=== PATIENT | male | born 1965 | race Caucasian/White ===

== ENCOUNTER 2018-09-10 18:33 | Inpatient (IN) | payer OTHER ==
[~2018-09-10] VITALS: Ht 175.3 cm; Wt 89.4 kg
[~2018-09-10 18:33] MED LIST: IBUPROFEN 800800 MG PO; NOHOMEMEDICATIONS; NORCO 5-325 TA1 EACH PO
[2018-09-10 19:01] VITALS: BP 139/95
[2018-09-10 20:13] LABS: ABSOLUTE NEUTROPHILS 4.6 thou/uL (1.4-8.2); BASOPHILS 1.5 % (0.0-2.0); EOSINOPHILS 1.3 % (0.0-3.0); HEMATOCRIT 36.3 % (42.0-52.0); HEMOGLOBIN 12.1 gm/dL (14.0-18.0); LYMPHOCYTES 27.4 % (24.0-44.0); MCHC 33.2 g/dL (28.0-37.0); MCV 90.1 fL (80.0-100.0); MONOCYTES 7.9 % (1.0-8.0); PLATELET COUNT 213 thou/uL (150-400); POLYS 61.9 % (36.0-66.0); RBC 4.03 mil/uL (4.50-6.00); RDW 13.1 % (10.5-14.5); WBC 7.5 thou/uL (4.0-11.0)
[2018-09-10 20:21] LABS: ANION GAP 13 mmol/L (7-16); BUN 16 mg/dL (7-18); CALCIUM 8.6 mg/dL (8.5-10.1); CHLORIDE 106 mmol/L (98-107); CO2 22 mmol/L (21-32); CREATININE 1.1 mg/dL (0.7-1.3); GLUCOSE 123 mg/dL (74-106); POTASSIUM 4.1 mmol/L (3.5-5.1); SODIUM 141 mmol/L (136-145)
[2018-09-10 20:30] LABS: APTT 27.9 Seconds (24.5-32.8); D-DIMER 1.22 ug/mLFEU (0.19-0.50); INR 1.2; PROTIME 12.7 Seconds (9.3-11.4)
[2018-09-10 20:31] LABS: ALBUMIN 3.4 g/dL (3.4-5.0); MAGNESIUM 2.1 mg/dL (1.8-2.4); SGOT 35 U/L (15-37); SGPT 25 U/L (30-65); TOTAL BILIRUBIN 0.8 mg/dL (<0.1-1.0); TOTAL PROTEIN 7.1 g/dL (6.4-8.2); TROPONIN-I <0.06 ng/mL (<0.06)
[2018-09-10 22:47] LABS: URINE BILIRUBIN NEGATIVE (Negative); URINE BLOOD NEGATIVE (Negative); URINE CLARITY CLEAR; URINE COLOR YELLOW; URINE GLUCOSE-RANDOM* NEGATIVE (Negative); URINE KETONES NEGATIVE (Negative); URINE LEUKOCYTES-REFLEX NEGATIVE (Negative); URINE NITRITE-REFLEX NEGATIVE (Negative); URINE PROTEIN (DIPSTICK) 1+ (Negative); URINE SPECIFIC GRAVITY 1.025 (1.005-1.035); URINE UROBILINOGEN 0.2 E.U./dl (0.2-1.0)
[2018-09-10 23:15] LABS: BACTERIA-REFLEX None Seen /HPF (None Seen); CASTS None Seen /LPF (None Seen); CRYSTALS None Seen /LPF (None Seen); MUCUS 0-3 Light strn/LPF (None Seen); SQUAMOUS 0-3 Few /LPF (0-3); URINE RBC 0-2 Rare /HPF (0-2); URINE WBC-REFLEX 0-5 Rare /HPF (0-5)
[2018-09-10 23:48] VITALS: BP 120/83
[2018-09-10 23:55] VITALS: BP 121/65
--- NOTE | 2018-09-11 02:48 | NUR ---
PT ARRIVED UNIT AT ABOUT 0045. PT A/OX4, VITAL SIGNS STABLE, ASSESSMENT CHARTED. PT COMPLAINED OF SOME RESIDUAL CHEST AND BACK PAIN AFTER HE COUGHS. BUT RESOLVES IMMEDIATELY. OCCASIONAL SOB, O2 AT BED SIDE IF/WHEN HE NEEDS IT. SITTING UP IN BED HELPS. HEAD OF BED ELEVATED. ADMISSION COMPLETED. PT RESTING IN BED. PT ENCOURGED TO CALL. EDUCATION PROVIDED ABOUT FREQUENT CHECKS ESPECIALLY DURING INTEFERENCE. WILL CONTINUE TO MONITOR.
[2018-09-11 05:59] LABS: CHOLESTEROL 138 mg/dL (<200); HDL CHOLESTEROL 28 mg/dL (>40); LDL CHOLESTEROL 98 mg/dL (<100); SERUM ASSESSMENT Clear; TC:HDL 4.9 Ratio (Not establshd); TRIGLYCERIDE 64 mg/dL (<150); TROPONIN-I <0.06 ng/mL (<0.06); VLDL 13 mg/dL (<40)
--- NOTE | 2018-09-11 07:57 | EKG ---
[address] [place] [address] ELECTROCARDIOGRAM REPORT Name: SHIRLEY BARRETO Room #: 209-P ADM IN M.R.#: [id number] ������������������ Admission: 09/10/18 ������������������ Attend Phys: Mati Krause MD Discharge: ������������������ Date of : 63 Report #: [id number] ����������������������������������������������������������������� [id number] THIS REPORT FOR: //name// [facility] ED Test Date: 2018-09-10 Test Time: 18:39:56 Pat Name: SHIRLEY BARRETO Department: Room: 209 Gender: M Faculty Support Coordinator: BRAD : 1965 Requested By: Order Number: [id number] MD: Fahad Salomon Measurements Intervals [place] Rate: 117 P: 65 NE: 153 QRS: 68 QRSD: 103 T: 17 QT: 352 QTc: 491 Interpretive Statements Sinus tachycardia Left atrial enlargement Borderline prolonged QT interval No previous ECG available for comparison Electronically Signed On 09-11-2018 7:56:58 CDT by Fahad Salomon [email or web address] ��������������������������������������������� <ELECTRONICALLY SIGNED> ���������������������������������������� By: Fahad Salomon MD, [facility] ��������������������������������������������� 09/11/18 0756 1839 183 Fahad Salomon MD, FACC /EPI
--- NOTE | 2018-09-11 08:00 | EKG ---
[address] [place] [address] ELECTROCARDIOGRAM REPORT Name: SHIRLEY BARRETO Room #: 209-P ADM IN M.R.#: [id number] ������������������ Admission: 09/10/18 ������������������ Attend Phys: Mati Krause MD Discharge: ������������������ Date of : 63 Report #: [id number] ����������������������������������������������������������������� [id number] THIS REPORT FOR: //name// [facility] Test Date: 2018-09-11 Test Time: 06:56:00 Pat Name: SHIRLEY BARRETO Department: Room: 209 P Gender: M [employer]: CARMEL : 1965 Requested By: Kym Mccoy Order Number: [id number] MD: Fahad Salomon Measurements Intervals [place] Rate: 95 P: 50 IA: 169 QRS: 55 QRSD: 109 T: 19 QT: 395 QTc: 497 Interpretive Statements Sinus tachycardia Multiple ventricular premature complexes Poor R wave progression Borderline prolonged QT interval No previous ECG available for comparison Electronically Signed On 09-11-2018 8:00:06 CDT by Fahad Salomon [email or web address] ��������������������������������������������� <ELECTRONICALLY SIGNED> ���������������������������������������� By: Fahad Salomon MD, [facility] ��������������������������������������������� 09/11/18 0800 0656 5 Fahad Salomon MD, FACC /EPI
--- NOTE | 2018-09-11 08:07 | 2DMMODE ---
[facility] [address] [place] [address] 2 D/M-MODE ECHOCARDIOGRAM Name: SHIRLEY BARRETO Room #: 209-P ADM IN M.R.#: [id number] ������������� Admission: 09/10/18 ������������� Attend Phys: Mati Krause MD Discharge: ��� ������������� ��� Date of : 63 Date of Service: 09/11/18 0806 �� Report #: [id number] �������� ��������������������������������������������[id number] THIS REPORT FOR: //name// APPROVED REPORT Study performed: 09/11/2018 06:54:04 EXAM: Comprehensive 2D, Doppler, and color-flow Echocardiogram Patient Location: Bedside Room #: 209 Status: routine BSA: 1.98 HR: 100 bpm BP: 121/65 mmHg Rhythm: NSR/TACHY/PVCs Other Information Study Quality: Excellent Indications Diaphoresis, leg edema, short of breath, chest pain. Hx: Tob and ETOH abuse. 2D Dimensions RVDd: 49.75 mm IVSd: 10.19 (7-11mm) LVOT Diam: 22.39 (18-24mm) LVDd: 61.83 mm PWd: 9.70 (7-11mm) Ascending Ao: 37.62 (22-36mm) LVDs: 55.70 (25-40mm) Aortic Root: 36.95 mm Volumes Left Atrial Volume (Systole) Single Plane 4CH: 103.15 mL Single Plane 2CH: 134.77 mL LA ESV Index: 63.00 mL/m2 Aortic Valve AoV Peak Toni.: 0.93 m/s AO Peak Gr.: 3.46 mmHg LVOT Max P.72 mmHg LVOT Max V: 0.66 m/s SUYAPA Vmax: 2.77 cm2 Mitral Valve MV Decel. Time: 143.81 ms MV E Max Toni.: 1.26 m/s [facility] [place] [address] [place] [address] 2 D/M-MODE ECHOCARDIOGRAM Name: SHIRLEY BARRETO [place] Room #: 209- ADM IN M.R.#: [id number] ������������� Admission: 09/10/18 ������������� Attend Phys: Mati Krause MD Discharge: ��� ������������� ��� Date of : 63 Date of Service: 09/11/18 0806 �� Report #: [id number] �������� ��������������������������������������������[id number] Pulmonary Valve PV [place] Toni.: 0.62 m/s PV [place] Gr.: 1.55 mmHg Tricuspid Valve TR [place] Toni.: 3.55 m/s RAP Estimate: 15.00 mmHg TR [place] Gr.: 50.00 mmHg PA Pressure: 65.00 mmHg Left Ventricle Left ventricle is moderately dilated. There is global hypokinesis of the left ventricle. There is normal left ventricular wall thickness. Left ventricular systolic function is severely decreased. LVEF is 20-25%. This study is not technically sufficient to allow evaluation of the LV diastolic function. Right Ventricle Right ventricle is moderately dilated. Right ventricular systolic function is mild to moderately reduced. Atria Left atrium is severely dilated. Right atrium is severely dilated. Aortic Valve The aortic valve is normal in structure. No aortic regurgitation is present. There is no aortic valvular stenosis. Mitral Valve The mitral valve is normal in structure. Severe mitral regurgitation. No evidence of mitral valve stenosis. Tricuspid Valve The tricuspid valve is normal in structure. Estimated PAP is 60-65mmHg. Severe tricuspid regurgitation. Pulmonic Valve The pulmonary valve is normal in structure. Trace pulmonic regurgitation. Great Vessels The aortic root is normal in size. The ascending aorta is borderline dilated. IVC is dilated and collapses <50% with inspiration. Pericardium [facility] [address] [address] 2 D/M-MODE ECHOCARDIOGRAM Name: SHIRLEY BARRETO Room #: 209-P ADM IN M.R.#: [id number] ������������� Admission: 09/10/18 ������������� Attend Phys: Mati Krause MD Discharge: ��� ������������� ��� Date of : 63 Date of Service: 09/11/18 0806 �� Report #: [id number] �������� ��������������������������������������������[id number] Small pericardial effusion. <Conclusion> Left ventricular systolic function is severely decreased. LVEF is 20-25%. Both atria are severely dilated. The aortic valve is normal in structure. No aortic regurgitation or stenosis The mitral valve is normal in structure. Severe mitral regurgitation. The tricuspid valve is normal in structure. Estimated pulmonary artery pressure of 60-65mmHg. Small pericardial effusion. ��������������������������������������������� <ELECTRONICALLY SIGNED> ���������������������������������������� By: Fahad Salomon MD, [facility] ��������������������������������������������� 09/11/18805 5 5 Fahad Salomon MD, [facility] /INF
[2018-09-11 08:26] VITALS: BP 124/88
--- NOTE | 2018-09-11 09:51 | NUR ---
AAOX4. CARDIAC TESTS ONGOING AT THIS TIME. DR. LEO TO SEE. ST PER TELEMETRY. D-DIMER 1.22 INDICATES LIKELIHOOD OF A CLOT BUT NONE FOUND YET. FREQUENT CHECKS; WILL CONTINUE TO MONITOR.
--- NOTE | 2018-09-11 13:57 | NUR ---
BACK FROM CARDIAC CATH, REPORT FROM KEILA SANCHEZ. HE REPORTS PATIENT BECAME DIAPHORETIC DURING THE PROCEDURE D/T ETOH WITHDRAWL. DR. EDVIN PRO. PRIYA MULLINS, HERE AND WILL ORDER CWA PROTOCOL. WILL CONTINUE TO MONITOR POST CATH.
--- NOTE | 2018-09-11 14:39 | NUR ---
Case opened to follow for dc planning. Freelance Operator visited with the pt at bedside. He is a&ox4 and has several siblings at bedside. 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 He is indep and lives with his brother. His ex is his emergency contact. He denies any dc planning needs at this time. He reports there [place] a clinic in [place] that he can f/u at. Options for discounts on medications and safte[facility] net clinics in [place] discussed. Pt going to laboratory sample carrier and with family at bedside; ethol abuse and tx resources not discussed. Pt will need a alvaro application from [employer]. Will follow.
[2018-09-11 14:43] VITALS: BP 124/88
--- NOTE | 2018-09-11 14:43 | CATHLAB ---
[facility] [address] [place] [address] INVASIVE PROCEDURE REPORT Name: SHIRLEY BARRETO Room #: 209-P ADM IN M.R.#: [id number] ������������� Admission: 09/10/18 ������������� Attend Phys: Mati Krause MD Discharge: ��� ������������� ��� Date of : 63 Date of Service: 09/11/18 1443 �� Report #: [id number] �������� ��������������������������������������������[id number] THIS REPORT FOR: //name// APPROVED REPORT Study performed: 09/11/2018 12:43:11 Patient Details Patient Status: In-Patient Room #: The patient is a 53 year-old male Event Personnel Troy Do Director Design, , Kathy Agosto, Mirtha [place] RTR, FACUNDO Scrub, Jose Antonio Peres RN Vice President Payment Procedures Performed Art Access - R femoral artery* Naseem Access - R femoral vein 93632 Initial Mod Sed Same Phys/QHP Gr5y 340300 54899 Mod Sed Same Phys/QHP Ea 950288 Right and Left Heart Cath w/or w/o Coronarie [id number] [facility] Aortogram Abdominal Peripheral Angio 589772 Hemostasis w/ Mynx Indication Chest pain Procedure Narrative The patient was brought urgently to the Cardiac Catheterization Laboratory and was prepped and draped in a sterile manner. The Right Groin^ was infiltrated with 1% Lidocaine subcutaneous anesthesia. A Right Heart Catheterization was performed with a 7 Fr. [place]-Jorge Luis catheter and pressure were recorded. Cardiac outputs were obtained by the Thermal Dilution method. A PINNACLE 6FR Sheath #[id number] sheath was inserted into the RFA^. Coronary angiography was performed using coronary diagnostic catheters. The right coronary system was accessed and visualized with a JR 4 catheter. The left coronary system was accessed and visualized with a JL 4 catheter. The left ventricle was accessed and visualized with a Pigtail catheter. Left ventriculogram was performed in [place]OR[place] projection. An aortogram of the abdominal aorta was performed. Pre-demployment femoral angiogram was performed . Closure device was deployed with a 6 Fr Mynx. Hemostasis was obtained with manual pressure following sheath removal without any complications. The patient tolerated the procedure well and there were no complications associated with the procedure. There was no hematoma. [facility] [place] [address] INVASIVE PROCEDURE REPORT Name: SHIRLEY BARRETO Room #: 209-P [facility] IN ..#: [id number] ������������� Admission: 09/10/18 ������������� Attend Phys: Mati Krause MD Discharge: ��� ������������� ��� Date of : 63 Date of Service: 09/11/18 1443 �� Report #: [id number] �������� ��������������������������������������������[id number] Intraoperative Conscious Sedation Sedation start time: 12:57 Case end Time: 13:30 Fentanyl 75 mcg Versed 1.5 mg Fluoro Time: 4.20 minutes Dose: DAP 8878 cGycm2 1035 mGy Contrast Type and Amount: Omnipaque 105 ml Hemodynamics The right atrial mean pressure is 22 mmHg. The right ventricular pressure is 40/12 mmHg. The pulmonary artery pressure is 49/31 mmHg with a mean of 41 mmHg. The mean pulmonary capillary wedge pressure is 35 mmHg. The aortic pressure is 102/81 mmHg with a mean of 90 mmHg. The left ventricular pressure is 101/10 mmHg with a mean of mmHg. The left ventricular end diastolic pressure is 20 mmHg. The cardiac output using thermo method is 2.45 L/min. The cardiac index using thermo method is 1.24 L/min/m2. Conclusion #1 significant left ventricular dilatation and severe global hypokinesis EF 15-20% range with what appears to be moderate mitral regurgitation #2 abdominal aortogram revealingno kidney aneurysm there appears to be generalized slow flow no significant stenosis #3 there is a moderate distal left main stenosis approaching 50% giving rise to LAD and circumflex #4 LAD moderately diseased proximally 5060% diffuse irregularities with calcification also involving the diagonal takeoffs. Moderate diagonal system the mid-distal LAD well preserved. This is a type I LAD and stops short of the apex #5 circumflex OM is nondominant moderate disease 50-60% ostial disease with one single OM branch #6 large dominant right coronary artery supplying most of the inferior lateral and anterior apical wall. No occlusive disease #7 successful right heart catheterization with significant decrease in cardiac output cardiac index. See above hemodynamics. IV Lasix giving during this procedure. Ulna A wedge pressure proximal a 25 PA pressure 50/25. Cardiac index 1.7 Recommendations and plan: Patient will transfer back to telemetry unit. IV Lasix and continue aggressive diuresis. Initiation of leo R but beta blockers to ensue. Idiopathic global cardiopathy with moderate left main LAD disease. Do not perceive that the LAD and left main is the culprit for this [facility] [address] [place] [address] INVASIVE PROCEDURE REPORT Name: CATES,SHIRLEY DESTINY Room #: 209-P ADM IN M.R.#: [id number] ������������� Admission: 09/10/18 ������������� Attend Phys: Mati Krause MD Discharge: ��� ������������� ��� Date of : 63 Date of Service: 09/11/18 1443 �� Report #: [id number] �������� ��������������������������������������������[id number] cardiomyopathy. Significant EtOH and other illicit drug use may be contributing. Will follow closely hemodynamically stable and pain-free. ��������������������������������������������� <ELECTRONICALLY SIGNED> ���������������������������������������� By: Troy Do MD, FACC ��������������������������������������������� 09/11/18 1443 144 144 Troy Do MD, FACC /INF
[2018-09-11 17:25] VITALS: BP 124/88
--- NOTE | 2018-09-11 18:30 | NUR ---
HE STATES HE IS GOING HOME AND I CAN'T STOP HIM. HAS DISCONTINUED HIS TELEMETRY. GETTING DRESSED. DR. PARDO CALLED AND INFORMED. AMA FORM SIGNED. ESCORTED TO THE E.D. ENTRANCE, AMBULATORY TO HIS TRUCK.
== END 2018-09-11 18:25 | disposition left against medical advice (07) | DRG 286 ==
LOC: ER 18:33 → 2N 22:40 → EROBS 22:40 → 2N 09-11 01:23
PROVIDERS: Emergency Medicine; Nurse Practitioner Acute Care; ADMIT Internal Medicine
PROC: 4A023N8 Measurement of Cardiac Sampling and Pressure, Bilateral, Percutaneous Approach (ICD-10-PCS; principal; 2018-09-11)
PROC: B4101ZZ Fluoroscopy of Abdominal Aorta using Low Osmolar Contrast (ICD-10-PCS; principal; 2018-09-11)
PROC: B2111ZZ Fluoroscopy of Multiple Coronary Arteries using Low Osmolar Contrast (ICD-10-PCS; principal; 2018-09-11)
PROC: B2151ZZ Fluoroscopy of Left Heart using Low Osmolar Contrast (ICD-10-PCS; principal; 2018-09-11)
DX: I11.0 Hypertensive heart disease with heart failure (principal); I26.99 Other pulmonary embolism without acute cor pulmonale; I50.23 Acute on chronic systolic (congestive) heart failure; F17.210 Nicotine dependence, cigarettes, uncomplicated; R00.0 Tachycardia, unspecified; E78.5 Hyperlipidemia, unspecified; Z60.2 Problems related to living alone; F10.10 Alcohol abuse, uncomplicated; Y90.9 Presence of alcohol in blood, level not specified; F15.90 Other stimulant use, unspecified, uncomplicated; I34.0 Nonrheumatic mitral (valve) insufficiency; I25.10 Atherosclerotic heart disease of native coronary artery without angina pectoris; Z53.21 Procedure and treatment not carried out due to patient leaving prior to being seen by health care provider; Z82.49 Family history of ischemic heart disease and other diseases of the circulatory system; Z83.6 Family history of other diseases of the respiratory system; Z79.899 Other long term (current) drug therapy; Z88.6 Allergy status to analgesic agent; Z81.1 Family history of alcohol abuse and dependence; Z71.6 Tobacco abuse counseling; Z72.89 Other problems related to lifestyle; Z71.41 Alcohol abuse counseling and surveillance of alcoholic; Z71.51 Drug abuse counseling and surveillance of drug abuser

== ENCOUNTER 2018-10-29 19:05 | Inpatient (IN) | payer OTHER ==
[~2018-10-29] VITALS: Ht 175.3 cm; Wt 81.6 kg
[~2018-10-29 19:05] MED LIST changes: +CARVEDILOL3.125 MG PO; +LASIX 40 MG TAB40 M2 PO; +LISINOPRIL2.5 MG PO
[2018-10-29 19:09] VITALS: BP 123/89
[2018-10-29 20:13] LABS: ABSOLUTE NEUTROPHILS 4.6 thou/uL (1.4-8.2); EOSINOPHILS 0.9 % (0.0-3.0); HEMATOCRIT 40.7 % (42.0-52.0); HEMOGLOBIN 13.5 gm/dL (14.0-18.0); MCH 29.4 pg (26.0-34.0); MCHC 33.1 g/dL (28.0-37.0); MCV 88.8 fL (80.0-100.0); MONOCYTES 6.7 % (1.0-8.0); PLATELET COUNT 213 thou/uL (150-400); POLYS 62.4 % (36.0-66.0); RBC 4.59 mil/uL (4.50-6.00); RDW 15.1 % (10.5-14.5); WBC 7.5 thou/uL (4.0-11.0)
[2018-10-29 20:24] LABS: ANION GAP 9 mmol/L (7-16); BUN 18 mg/dL (7-18); CALCIUM 9.7 mg/dL (8.5-10.1); CHLORIDE 102 mmol/L (98-107); CO2 28 mmol/L (21-32); CREATININE 1.1 mg/dL (0.7-1.3); GLUCOSE 97 mg/dL (74-106); POTASSIUM 4.1 mmol/L (3.5-5.1); SODIUM 139 mmol/L (136-145)
[2018-10-29 20:33] LABS: TROPONIN-I <0.06 ng/mL (<0.06)
[2018-10-29 20:38] LABS: INR 1.1; PROTIME 11.3 Seconds (9.3-11.4)
[2018-10-29] MEDS ORDERED: LOVASTATIN 20 M20 MG (21:49)
[2018-10-30] VITALS (7 sets, daily range): BP systolic 95–122; BP diastolic 63–87
[2018-10-30 02:21] LABS: CALCIUM 8.8 mg/dL (8.5-10.1); CREATININE 1.2 mg/dL (0.7-1.3); POTASSIUM 3.6 mmol/L (3.5-5.1)
--- NOTE | 2018-10-30 06:00 | NUR ---
ASSUME CARE 1900. PT/VITALS STABLE. DROWSY BUT WASILY AROUSABLE. DENIES CHEST PAIN. RESTING QUIETLY. UP AD JACK. ASSESSMENT CHARTED. 1500 FLUID RESTRICTION. PLAN IS TO DIURESE PT. PAUSES NOTED WITH HEART RHYTHM. CARDIOLOGY CONSULTED. WILL SEE PT TODAY. NO DISTRESS NOTED. WILL CONTINUE TO MONTITOR AND FOLLOW WITH POC
--- NOTE | 2018-10-30 10:19 | NUR ---
paul sent face sheet to [facility] and called [facility] to let her know fax coming.
--- NOTE | 2018-10-30 10:54 | 2DMMODE ---
[facility] [address] [place] [address] 2 D/M-MODE ECHOCARDIOGRAM Name: SHIRLEY BARRETO Room #: 219-P ADM IN M.R.#: [id number] Admission: 10/29/18 Attend Phys: Huy Penny, Discharge: Date of : 63 Date of Service: 10/30/18 1054 Report #: [id number] THIS REPORT FOR: //name// APPROVED REPORT Study performed: 10/30/2018 09:36:17 EXAM: Limited 2D, Doppler, and color-flow Echocardiogram Patient Location: Echo lab Room #: 219 Status: routine BSA: 1.98 HR: 92 bpm BP: 116/70 mmHg Rhythm: NSR/PVCS Other Information Study Quality: Excellent Indications Limited follow up echo for LV function. Chest pain, CHF. Hx: CAD, tob and substance abuse. (Complete echo done 09/11/18; EF 20-25%) 2D Dimensions LVDd: 62.25 mm Tricuspid Valve TR Peak Toni.: 3.48 m/s RAP Estimate: 5.00 mmHg TR Peak Gr.: 48.41 mmHg PA Pressure: 53.00 mmHg Left Ventricle Left ventricle is moderately dilated. There is global hypokinesis of the left ventricle. Left ventricular systolic function is severely decreased. LVEF is 25-30%. Right Ventricle Right ventricle is dilated. Right ventricle is hypokinetic. Atria Left atrium is dilated. Right atrium is dilated. Aortic Valve The aortic valve is normal in structure. No aortic regurgitation is [facility] [address] [place] [address] 2 D/M-MODE ECHOCARDIOGRAM Name: SHIRLEY BARRETO Room #: 219-P ADM IN M.R.#: [id number] Admission: 10/29/18 Attend Phys: Huy Penny, Discharge: Date of : 63 Date of Service: 10/30/18 1054 Report #: [id number] present. There is no aortic valvular stenosis. Mitral Valve The mitral valve is normal in structure. Severe mitral regurgitation. Tricuspid Valve Tricuspid valve is not well visualized. Severe tricuspid regurgitation. Estimated PAP is 55mmHg. Pulmonic Valve Pulmonic valve is not well visualized. Great Vessels IVC is normal in size and collapses >50% with inspiration. Pericardium Small pericardial effusion. <Conclusion> Left ventricle is moderately dilated. Left ventricular systolic function is severely decreased. LVEF is 25-30%. There is global hypokinesis of the left ventricle. Right ventricle is dilated. Right ventricle is hypokinetic. Left atrium is dilated. Right atrium is dilated. The aortic valve is normal in structure. The mitral valve is normal in structure. Severe mitral regurgitation. Tricuspid valve is not well visualized. Severe tricuspid regurgitation. Estimated PAP is 55mmHg. Pulmonic valve is not well visualized. Small pericardial effusion. <ELECTRONICALLY SIGNED> By: Solomon Quintanilla MD 10/30/18 1054 1054 1054 Solomon Quintanilla MD /INF
[2018-10-30] MEDS ORDERED: ASPIR 8181 MG PO (14:07)
[2018-10-30] MEDS ORDERED: PEPCID20 MG PO (14:08)
--- NOTE | 2018-10-30 14:09 | NUR ---
Chart reviewed and pt known to cm from a visit in August. 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 Pt is indep and has good family support. He is aware of local clinics and options for medication assistance. Likely dc later today. No cm interventions indicated at this time.
--- NOTE | 2018-10-30 15:57 | NUR ---
PATIENT CARE ASSUMED, ASSESSMENT CHARTED, PATIENT ALERT AND ORIENTED X 4, VSS, NO COMPLAINTS OF PAIN, PATIENT DISCHARGED TO HOME, DISCHARGE PRESCRIPTIONS GIVEN AND INSTRUCTIONS EXPLAINED, STATED UNDERSTANDING. PATIENT DISMISSED BY WHEELCHAIR ACCOMPANIED BY
--- NOTE | 2018-10-30 18:08 | EKG ---
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: TS : 1965 Requested By: Amena Bah Order Number: [id number] MD: Fahad Salomon Measurements Intervals [place] Rate: 105 P: 53 PA: 171 QRS: 42 QRSD: 108 T: 36 QT: 384 QTc: 508 Interpretive Statements Sinus tachycardia Left atrial enlargement Poor R wave progression Left ventricular hypertrophy Prolonged QT interval Compared to ECG 09/20/2018 05:21:53 No significant change was found Electronically Signed On 10-30-2018 18:08:43 CDT by Fahad Salomon [email or web address] <ELECTRONICALLY SIGNED> By: Fahad Salomon MD, [facility] 10/30/18 1808 [id number] Fahad Salomon MD, [facility] /EPI
--- NOTE | 2018-10-31 10:23 | EKG ---
[place] [address] [facility] [place] [address] ELECTROCARDIOGRAM REPORT Name: SHIRLEY BARRETO Room #: 219-P DIS IN M.R.#: [id number] Admission: 10/29/18 Attend Phys: Huy Penny DO Discharge: 10/30/18 Date of : 63 Report #: [id number] THIS REPORT FOR: //name// [facility] Test Date: 2018-10-30 Test Time: 07:58:46 Pat Name: SHIRLEY BARRETO Department: Room: 219 Gender: M Electrotyper: CARMEL : 1965 Requested By: Lindsay Boone Order Number: [id number] MD: Fahad Salomon Measurements Intervals [place] Rate: 94 P: 56 CO: 188 QRS: 71 QRSD: 111 T: 35 QT: 408 QTc: 511 Interpretive Statements Sinus rhythm Nonspecific intraventricular conduction delay Poor R wave progression Compared to ECG 09/20/2018 05:21:53 Premature ventricular complexes are no longer present Electronically Signed On 10-31-2018 10:23:10 CDT by Fahad Salomon [email or web address] <ELECTRONICALLY SIGNED> By: Fahad Salomon MD, [facility] 10/31/18 1023 0758 0758 Fahad Salomon MD, [facility] /EPI
== END 2018-10-30 16:21 | disposition home or self-care (01) | DRG 292 ==
LOC: ER 19:05 → EROBS 21:30 → 2N 21:30 → ENTRNSPT 10-30 16:02 → 2N 10-30 16:21
PROVIDERS: Nurse Practitioner; Nurse Practitioner Family; ADMIT Internal Medicine Geriatric Medicine
DX: I50.21 Acute systolic (congestive) heart failure (principal); I42.8 Other cardiomyopathies; F17.210 Nicotine dependence, cigarettes, uncomplicated; F14.90 Cocaine use, unspecified, uncomplicated; F10.10 Alcohol abuse, uncomplicated; Z96.659 Presence of unspecified artificial knee joint; F19.10 Other psychoactive substance abuse, uncomplicated; Z79.82 Long term (current) use of aspirin; Z79.899 Other long term (current) drug therapy; I25.10 Atherosclerotic heart disease of native coronary artery without angina pectoris; Z88.6 Allergy status to analgesic agent; Z82.49 Family history of ischemic heart disease and other diseases of the circulatory system; Z83.6 Family history of other diseases of the respiratory system; Z91.14 Patient's other noncompliance with medication regimen; Z71.6 Tobacco abuse counseling; Z81.1 Family history of alcohol abuse and dependence

== ENCOUNTER 2019-01-06 19:01 | Inpatient (IN) | payer OTHER ==
[~2019-01-06] VITALS: Ht 175.3 cm; Wt 94.6 kg
[~2019-01-06 19:01] MED LIST changes: +ASPIR 8181 MG PO; +LOVASTATIN 20 M20 MG; +PEPCID20 MG PO
[2019-01-06 19:03] VITALS: BP 139/90
[2019-01-06 19:31] LABS: HEMATOCRIT 37.2 % (42.0-52.0); MCH 29.3 pg (26.0-34.0); MCHC 32.3 g/dL (28.0-37.0); MCV 90.5 fL (80.0-100.0); PLATELET COUNT 183 thou/uL (150-400); RBC 4.11 mil/uL (4.50-6.00); RDW 15.5 % (10.5-14.5); WBC 7.7 thou/uL (4.0-11.0)
[2019-01-06 19:37] LABS: ANION GAP 6 mmol/L (7-16); BUN 16 mg/dL (7-18); CALCIUM 8.6 mg/dL (8.5-10.1); CHLORIDE 102 mmol/L (98-107); CO2 29 mmol/L (21-32); CREATININE 1.2 mg/dL (0.7-1.3); GLUCOSE 92 mg/dL (74-106); POTASSIUM 3.8 mmol/L (3.5-5.1); SODIUM 137 mmol/L (136-145)
[2019-01-06 19:46] LABS: TROPONIN-I <0.06 ng/mL (<0.06)
[2019-01-06 20:00] LABS: ABSOLUTE NEUTROPHILS 4.2 thou/uL (1.4-8.2); ANISOCYTOSIS 1+
[2019-01-07 05:28] LABS: CALCIUM 8.4 mg/dL (8.5-10.1); CREATININE 1.1 mg/dL (0.7-1.3); POTASSIUM 3.7 mmol/L (3.5-5.1)
--- NOTE | 2019-01-07 15:34 | 2DMMODE ---
[facility] [place] [address] 2 D/M-MODE ECHOCARDIOGRAM Name: SHIRLEY BARRETO Room #: 170-7 ADM IN M.R.#: [id number] Admission: 01/06/19 Attend Phys: Pato Lim MD Discharge: Date of : 63 Report #: [id number] THIS REPORT FOR: //name// APPROVED REPORT Study performed: 01/07/2019 10:44:21 EXAM: Comprehensive 2D, Doppler, and color-flow Echocardiogram Patient Location: ER Room #: 7 Status: routine BSA: 1.98 HR: 103 bpm BP: 128/85 mmHg Rhythm: Tachycardia Other Information Study Quality: Excellent Indications Short of breath, edema, CHF. Hx: NISCM, Tob and ETOH abuse. 2D Dimensions RVDd: 49.75 mm IVSd: 11.00 (7-11mm) LVOT Diam: 23.28 (18-24mm) LVDd: 62.00 mm PWd: 11.28 (7-11mm) Ascending Ao: 37.44 (22-36mm) LVDs: 58.27 (25-40mm) Aortic Root: 34.57 mm Volumes Left Atrial Volume (Systole) Single Plane 4CH: 105.08 mL Single Plane 2CH: 140.39 mL LA ESV Index: 66.00 mL/m2 Aortic Valve AoV Peak Toni.: 1.41 m/s AO Peak Gr.: 7.96 mmHg LVOT Max P.99 mmHg LVOT Max V: 1.00 m/s SUYAPA Vmax: 3.01 cm2 Mitral Valve MV Decel. Time: 123.26 ms MV E Max Toni.: 1.42 m/s [facility] [address] [place] [address] 2 D/M-MODE ECHOCARDIOGRAM Name: SHIRLEY BARRETO Room #: 1707 ADM IN [facility].#: [id number] Admission: 01/06/19 Attend Phys: aPto Lim MD Discharge: Date of : 63 Report #: [id number] Pulmonary Valve PV Peak Toni.: 0.70 m/s PV Peak Gr.: 1.94 mmHg Tricuspid Valve TR Peak Toni.: 2.80 m/s RAP Estimate: 15.00 mmHg TR Peak Gr.: 31.15 mmHg PA Pressure: 46.00 mmHg Left Ventricle Left ventricle is moderately dilated. Flattened septum with dyskinetic motion, consistent with right ventricular volume overload. There is normal left ventricular wall thickness. Left ventricular systolic function is severely decreased. LVEF is 25%. This study is not technically sufficient to allow evaluation of the LV diastolic function. Right Ventricle Right ventricle is moderately dilated. Right ventricle is mildly hypokinetic. Atria Left atrium is severely dilated. Right atrium is severely dilated. Aortic Valve The aortic valve is normal in structure. No aortic regurgitation is present. There is no aortic valvular stenosis. Mitral Valve The mitral valve is normal in structure. Severe mitral regurgitation. Tricuspid Valve The tricuspid valve is normal in structure. Severe/wide open tricuspid regurgitation. Estimated PAP is 45mmHg. Pulmonic Valve The pulmonary valve is normal in structure. Trace pulmonic regurgitation. Great Vessels The aortic root is normal in size. The ascending aorta is normal in size. IVC is dilated and collapses <50% with inspiration. [facility] [address] [place] [address] 2 D/M-MODE ECHOCARDIOGRAM Name: SHIRLEY BARRETO Room #: 170-7 ADM IN M.R.#: [id number] Admission: 01/06/19 Attend Phys: Pato Lim MD Discharge: Date of : 63 Report #: [id number] Pericardium Small pericardial effusion. <Conclusion> Left ventricle is moderately dilated. Left ventricular systolic function is severely decreased. Flattened septum with dyskinetic motion, consistent with right ventricular volume overload. LVEF is 25%. This study is not technically sufficient to allow evaluation of the LV diastolic function. Right ventricle is moderately dilated. Right ventricle is mildly hypokinetic. Left atrium is severely dilated. Right atrium is severely dilated. The aortic valve is normal in structure. Severe mitral regurgitation. Severe/wide open tricuspid regurgitation. Estimated PAP is 45mmHg. The aortic root is normal in size. Small pericardial effusion. <ELECTRONICALLY SIGNED> By: Troy Do MD, FACC 01/07/19 1534 1534 1534 Troy Do MD, FACC /INF
[2019-01-07 15:59] VITALS: BP 121/67
[2019-01-07 16:13] VITALS: BP 119/70
[2019-01-07 16:55] VITALS: BP 111/64
--- NOTE | 2019-01-07 18:53 | NUR ---
TO UNIT FROM Donavon LEMONS. CALM, COOPERATIVE. DENIES SOB. SR/ST PER TELE. WILL CONTINUE TO FOLLOW CLOSELY.
[2019-01-07 19:21] VITALS: BP 106/61
[2019-01-08 00:19] VITALS: BP 107/74
[2019-01-08 04:03] VITALS: BP 117/71
--- NOTE | 2019-01-08 04:32 | NUR ---
ASSESSMENT DOCUMENTED.PT BEEN RESTING IN NO ACUTE DISTRESS.A/OX4.VSS.PT C/O FATIQUE AND DYSPNEA WITH ACTIVITIES,ON RA W/SATS WNL.DENIES CHEST PAIN OR ANY OTHER DISTRESS.CONT ON LASIX,DIURESING WELL.POC IS TO CONT WITH CURRENT TX.WILL CONT TO ONITOR PER POC.
[2019-01-08 07:30] VITALS: BP 122/88
--- NOTE | 2019-01-08 08:30 | EKG ---
[address] [employer] [place] [address] ELECTROCARDIOGRAM REPORT Name: SHIRLEY BARRETO Room #: 204-P ADM IN M.R.#: [id number] Admission: 01/06/19 Attend Phys: Pato Lim MD Discharge: Date of : 63 Report #: [id number] THIS REPORT FOR: //name// 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 : 1965 Requested By: Reggie Rodriguez Order Number: [id number] MD: Fahad Salomon Measurements Intervals [place] Rate: 115 P: 68 SD: 164 QRS: 81 QRSD: 99 T: -43 QT: 354 QTc: 490 Interpretive Statements Sinus tachycardia with atrial premature complexes Poor R wave progression Nonspecific ST and T wave abnormality Borderline prolonged QT interval Compared to ECG 10/30/2018 07:58:46 Atrial premature complexes and now present ST and T wave abnormality is now present Electronically Signed On 01-08-2019 8:30:16 CDT by Fahad Salomon [email or web address] <ELECTRONICALLY SIGNED> By: Fahad Salomon MD, FAC 01/08/19 0830 17 17 Fahad Salomon MD, [facility] /EPI
--- NOTE | 2019-01-08 08:38 | NUR ---
PATIENT CARE ASSUMED, ASSESSMENT CHARTED, VSS, ALERT AND ORIENTED X 4, NO COMPLAINTS OF PAIN, NO NEEDS VOICED, WILL CONTINUE TO MONITOR
[2019-01-08 11:55] VITALS: BP 94/63
--- NOTE | 2019-01-08 13:59 | NUR ---
FAXED FACE SHEET TO [place] [facility] TO HELP WITH MEDICAID APPLICATION.
[2019-01-08 16:05] VITALS: BP 103/57
--- NOTE | 2019-01-08 16:30 | NUR ---
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 He has no health insurance but believes it will begin in . [facility] Discussed medications like at [facility] and $4 list. Tenative plan for home no needs. referral to [facility].
[2019-01-08 20:47] VITALS: BP 105/69
--- NOTE | 2019-01-09 03:26 | NUR ---
ASSUMED PT CARE AT 1900. PT A/OX4, VITAL SIGN STABLE, ASSESSMENT CHARTED. NO COMPLAINT OF PAIN, DYSPNEIC ON EXERTION, RESOLVES ON OWN. RESTED WELL THROUGH THE NIGHT. PROGRESSING TOWARD PLAN OF CARE. WILL CONTINUE TO MONITOR.
[2019-01-09 04:14] VITALS: BP 104/62
[2019-01-09 07:35] VITALS: BP 110/71
[2019-01-09 11:45] VITALS: BP 95/52
[2019-01-09 16:30] VITALS: BP 99/68
--- NOTE | 2019-01-09 16:33 | NUR ---
ASSESSMENT CHARTED. PT ALERT AND ORIENTED. DENIED HAVING PAIN OR DISCOMFORT. NO CARDIAC OR RESPIRATORY DISTRESS NOTED. PROGRESSING WELL TOWARD DISCHARGE GOAL. WILL CONTINUE TO MONITOR.
[2019-01-09 20:00] VITALS: BP 119/77
[2019-01-10 05:02] LABS: CALCIUM 8.4 mg/dL (8.5-10.1); POTASSIUM 3.2 mmol/L (3.5-5.1)
[2019-01-10 05:32] VITALS: BP 137/83
--- NOTE | 2019-01-10 05:51 | NUR ---
ASSUMED PT CARE AT 1900. PT VSS AND NO C/O PAIN. PT REMOVED FROM TELE. AM LABS SHOWED A LOW POTASSIUM CALLED PHYSICIAN AND GOT REPLACEMENT. WILL CONTINUE TO MONITOR PER POC.
[2019-01-10 08:00] VITALS: BP 136/75
[2019-01-10] MEDS ORDERED: LIPITOR 20 MG T20 M1 PO (10:22)
[2019-01-10] MEDS ORDERED: KLOR-CON M2020 MEQ PO (10:23)
[2019-01-10] MEDS ORDERED: LISINOPRIL10 MG PO (10:23)
[2019-01-10] MEDS ORDERED: TORSEMIDE20 MG PO (10:24)
[2019-01-10 10:40] VITALS: BP 136/75
--- NOTE | 2019-01-10 12:06 | NUR ---
ASSESSMENT CHARTED. PT ALERT AND ORIENTED. VSS. DENIED HAVING PAIN OR DISCOMFORT. SEEN BY DR. MALDONADO AND DR. STEEN. ORDERS GIVEN TO DISCHARGE PT TO HOME. DISCHARGE INSTRUCTIONS GIVEN TO PT. PT VERBERLISED UNDERSTANDING.
== END 2019-01-10 12:09 | disposition home or self-care (01) | DRG 292 ==
LOC: ER 19:01 → 2N 20:33 → EROBS 20:33 → 2N 01-07 17:02
PROVIDERS: Emergency Medicine; Internal Medicine; Nurse Practitioner Family; ADMIT Hospitalist
DX: I50.23 Acute on chronic systolic (congestive) heart failure (principal); I42.8 Other cardiomyopathies; F17.210 Nicotine dependence, cigarettes, uncomplicated; I25.10 Atherosclerotic heart disease of native coronary artery without angina pectoris; I27.20 Pulmonary hypertension, unspecified; F15.10 Other stimulant abuse, uncomplicated; F10.10 Alcohol abuse, uncomplicated; F14.10 Cocaine abuse, uncomplicated; Z96.659 Presence of unspecified artificial knee joint; I34.0 Nonrheumatic mitral (valve) insufficiency; Z88.6 Allergy status to analgesic agent; Z82.49 Family history of ischemic heart disease and other diseases of the circulatory system; Z82.5 Family history of asthma and other chronic lower respiratory diseases; Z81.1 Family history of alcohol abuse and dependence; Z71.41 Alcohol abuse counseling and surveillance of alcoholic; Z71.6 Tobacco abuse counseling; Z71.51 Drug abuse counseling and surveillance of drug abuser; Z91.14 Patient's other noncompliance with medication regimen
CPT/HCPCS: 10081

== ENCOUNTER 2019-03-01 09:17 | Emergency (ER) | payer OTHER ==
[~2019-03-01] VITALS: Ht 175.3 cm; Wt 83.9 kg
[~2019-03-01 09:17] MED LIST changes: +KLOR-CON M2020 MEQ PO; +LIPITOR 20 MG T20 M1 PO; +LISINOPRIL10 MG PO; +TORSEMIDE20 MG PO
[2019-03-01 10:18] LABS: ABSOLUTE NEUTROPHILS 4.4 thou/uL (1.4-8.2); BASOPHILS 0.8 % (0.0-2.0); EOSINOPHILS 0.1 % (0.0-3.0); HEMATOCRIT 38.7 % (42.0-52.0); HEMOGLOBIN 12.6 gm/dL (14.0-18.0); LYMPHOCYTES 8.5 % (24.0-44.0); MCH 29.6 pg (26.0-34.0); MCHC 32.6 g/dL (28.0-37.0); MCV 90.5 fL (80.0-100.0); PLATELET COUNT 134 thou/uL (150-400); POLYS 80.6 % (36.0-66.0); RBC 4.27 mil/uL (4.50-6.00); RDW 15.9 % (10.5-14.5); WBC 5.4 thou/uL (4.0-11.0)
[2019-03-01 10:22] LABS: ANION GAP 7 mmol/L (7-16); BUN 13 mg/dL (7-18); CALCIUM 9.2 mg/dL (8.5-10.1); CHLORIDE 97 mmol/L (98-107); CO2 31 mmol/L (21-32); CREATININE 1.3 mg/dL (0.7-1.3); GLUCOSE 109 mg/dL (74-106); POTASSIUM 4.2 mmol/L (3.5-5.1); SODIUM 135 mmol/L (136-145)
[2019-03-01 10:32] LABS: ALBUMIN 3.9 g/dL (3.4-5.0); DIRECT BILIRUBIN 0.3 mg/dL (<0.1-0.2); SGOT 27 U/L (15-37); SGPT 15 U/L (30-65); TOTAL BILIRUBIN 0.8 mg/dL (<0.1-1.0); TOTAL PROTEIN 7.9 g/dL (6.4-8.2); TROPONIN-I <0.06 ng/mL (<0.06)
[2019-03-01] MEDS ORDERED: TAMIFLU75 MG PO (12:26)
[2019-03-01 13:43] VITALS: BP 118/42
--- NOTE | 2019-03-02 08:54 | EKG ---
[place] [address] [facility] [place] [address] ELECTROCARDIOGRAM REPORT Name: SHIRLEY BARRETO [id number] Admission: 03/01/19 Attend Phys: Discharge: 03/01/19 Date of : 63 Report #: [id number] THIS REPORT FOR: //name// 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: [facility] : 1965 Requested By: Amada Tinoco Order Number: [id number] MD: Fahad Salomon Measurements Intervals [place] Rate: 118 P: 76 CO: 150 QRS: 91 QRSD: 103 T: -19 QT: 359 QTc: 504 Interpretive Statements Sinus tachycardia Multiple ventricular premature complexes Abnormal R-wave progression, late transition Nonspecific ST and T wave abnormality Prolonged QT interval Compared to ECG 01/06/2019 19:18:40 Ventricular premature complex(es) now present Electronically Signed On 03-02-2019 8:53:47 FAN INSTALLER by Fahad Salomon [email or web address] <ELECTRONICALLY SIGNED> By: Fahad Salomon MD, [facility] 03/02/19 0853 1028 1028 Fahad Salomon MD, [facility] /EPI
== END 2019-03-01 13:47 | disposition home or self-care (01) ==
LOC: ER 09:17
PROVIDERS: Emergency Medicine
DX: J10.1 Influenza due to other identified influenza virus with other respiratory manifestations (principal); I50.9 Heart failure, unspecified; F17.210 Nicotine dependence, cigarettes, uncomplicated; Z95.2 Presence of prosthetic heart valve; Z88.5 Allergy status to narcotic agent

== ENCOUNTER 2019-07-29 18:00 | Emergency (ER) | payer OTHER ==
[~2019-07-29] VITALS: Ht 175.3 cm; Wt 86.2 kg
[~2019-07-29 18:00] MED LIST changes: +TAMIFLU75 MG PO
[2019-07-29 18:43] LABS: ABSOLUTE NEUTROPHILS 5.6 thou/uL (1.4-8.2); BASOPHILS 1.5 % (0.0-2.0); EOSINOPHILS 0.1 % (0.0-3.0); HEMATOCRIT 38.1 % (42.0-52.0); HEMOGLOBIN 12.4 gm/dL (14.0-18.0); LYMPHOCYTES 11.3 % (24.0-44.0); MCH 27.3 pg (26.0-34.0); MCHC 32.5 g/dL (28.0-37.0); MCV 83.9 fL (80.0-100.0); MONOCYTES 9.2 % (1.0-8.0); PLATELET COUNT 173 thou/uL (150-400); POLYS 77.9 % (36.0-66.0); RBC 4.54 mil/uL (4.50-6.00); RDW 17.2 % (10.5-14.5); WBC 7.2 thou/uL (4.0-11.0)
[2019-07-29 18:47] LABS: ANION GAP 6 mmol/L (7-16); BUN 16 mg/dL (7-18); CALCIUM 9.1 mg/dL (8.5-10.1); CHLORIDE 95 mmol/L (98-107); CO2 34 mmol/L (21-32); CREATININE 1.3 mg/dL (0.7-1.3); GLUCOSE 102 mg/dL (74-106); POTASSIUM 3.3 mmol/L (3.5-5.1); SODIUM 135 mmol/L (136-145)
[2019-07-29 18:57] LABS: DIRECT BILIRUBIN 0.4 mg/dL (<0.1-0.2); SGOT 25 U/L (15-37); SGPT 15 U/L (30-65); TOTAL BILIRUBIN 1.4 mg/dL (<0.1-1.0); TOTAL PROTEIN 8.3 g/dL (6.4-8.2); TROPONIN-I <0.06 ng/mL (<0.06)
[2019-07-29 20:17] LABS: URINE BILIRUBIN NEGATIVE (Negative); URINE BLOOD NEGATIVE (Negative); URINE CLARITY CLEAR; URINE COLOR YELLOW; URINE GLUCOSE-RANDOM* NEGATIVE (Negative); URINE KETONES NEGATIVE (Negative); URINE LEUKOCYTES-REFLEX NEGATIVE (Negative); URINE NITRITE-REFLEX NEGATIVE (Negative); URINE PROTEIN (DIPSTICK) NEGATIVE (Negative); URINE SPECIFIC GRAVITY 1.015 (1.005-1.035)
[2019-07-29 20:24] VITALS: BP 131/97
--- NOTE | 2019-07-30 08:22 | EKG ---
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[employer]: : 1965 Requested By: Amada Tinoco Order Number: [id number] MD: Loki Enrique Measurements Intervals [place] Rate: 66 P: 64 KS: 178 QRS: 82 QRSD: 104 T: 62 QT: 337 QTc: 353 Interpretive Statements Sinus tachycardia Ventricular trigeminy Probable left atrial enlargement Abnormal R-wave progression, late transition Left ventricular hypertrophy Borderline T abnormalities, lateral leads Baseline wander in lead(s) V2 Electronically Signed On 07-30-2019 8:20:20 CDT by Loki Enrique [email or web address] <ELECTRONICALLY SIGNED> By: Loki Enrique MD 07/30/19819 18 18 Loki Enrique MD /EPI
== END 2019-07-29 20:55 | disposition home or self-care (01) ==
LOC: ER 18:00
PROVIDERS: Emergency Medicine
DX: J06.9 Acute upper respiratory infection, unspecified (principal); I50.9 Heart failure, unspecified; F17.210 Nicotine dependence, cigarettes, uncomplicated; Z03.818 Encounter for observation for suspected exposure to other biological agents ruled out; Z88.6 Allergy status to analgesic agent; Z98.890 Other specified postprocedural states